=== PATIENT | female | born 1955 | race Caucasian/White ===

== ENCOUNTER 2017-07-03 03:47 | Inpatient (IN) | payer BC ==
[~2017-07-03] VITALS: Ht 167.6 cm; Wt 108.9 kg
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
[2017-07-03] MEDS ORDERED: ONDANSETRON HCL/PF 4 MG/2 ML VIAL ONE ×3 (03:53→05:10)
[2017-07-03] MEDS ORDERED: ONDANSETRON HCL/PF 4 MG/2 ML VIAL IVP ONE (04:00)
[2017-07-03] MEDS ORDERED: IV NS 0.9% 1,000 ML BAG IV ONE ×2 (04:00→06:00)
--- NOTE | 2017-07-03 04:00 | NUR ---
18G IV TO RAC USING ASEPTIC TECH, BLOOD SAMPLE HANDED OVER TO LAB AT BEDSIDE. IV FLUSHES EASILY WITH NS.
[2017-07-03 04:16] LABS: EOSINOPHILS # (AUTO) 0.1 /CMM (0.0-0.7); EOSINOPHILS % (AUTO) 0.3 % (0.0-6.0); HEMATOCRIT 49 % (33-45); HEMOGLOBIN 15.9 g/dL (11.5-14.8); LYMPHOCYTES # (AUTO) 1.4 /CMM (0.8-4.8); LYMPHOCYTES % (AUTO) 7.9 % (20.0-44.0); MEAN CORPUSCULAR HEMOGLOBIN 26 PG (26.0-33.0); MEAN CORPUSCULAR HGB CONC 32 g/dl (31.0-36.0); MEAN CORPUSCULAR VOLUME 81 fL (82-100); MONOCYTES # (AUTO) 1.8 /CMM (0.1-1.30); MONOCYTES % (AUTO) 9.7 % (2.0-12.0); NEUTROPHILS # (AUTO) 15.1 /CMM (1.8-8.9); NEUTROPHILS % (AUTO) 82.1 % (43.0-81.0); PLATELET COUNT (AUTO) 279 /CMM (150-450); RDW COEFFICIENT OF VARIATION 15.9 (11.5-15.0); RED BLOOD CELL COUNT(AUTO) 6.08 MIL/uL (4.0-5.2); WHITE BLOOD COUNT (AUTO) 18.4 K/uL (4.3-11.0)
[2017-07-03 04:27] LABS: INR 0.96 (0.87-1.13)
[2017-07-03 04:30] LABS: ALBUMIN 3.8 g/dL (3.4-5.0); BILIRUBIN,DIRECT 0.1 mg/dL (0.0-0.2); BILIRUBIN,TOTAL 0.5 mg/dL (0.2-1.0); CALCIUM, SERUM 9.2 mg/dL (8.5-10.1); TOTAL PROTEIN, SERUM 8.3 g/dL (6.4-8.2)
[2017-07-03 04:35] LABS: POTASSIUM 2.6 mmol/L (3.5-5.1)
--- NOTE | 2017-07-03 04:36 | NUR ---
DR. SHEIKH AT BEDSIDE SPEAKING TO PT REGARDING LAB RESULTS
[2017-07-03 04:37] LABS: BAND % (MANUAL) 11 % (0.0-5.0); MONOCYTES % (MANUAL) 4 % (0-11.0); NEUTROPHILS % (MANUAL) 85 (42-76)
[2017-07-03] MEDS ORDERED: ONDANSETRON HCL/PF 4 MG/2 ML VIAL IV ONE ×2 (05:00→05:30)
[2017-07-03] MEDS ORDERED: Magnesium 1 GM/2 ML VIAL IV ONE (05:00)
[2017-07-03] MEDS ORDERED: POTASSIUM CHLORIDE 20 MEQ TAB.PRT.SR PO ONE ×2 (05:00)
[2017-07-03] MEDS ORDERED: LORAZEPAM INJ 2 MG/ML VIAL ONE (05:41)
--- NOTE | 2017-07-03 05:51 | NUR ---
PT TO CT VIA STRETCHER. VSS.
[2017-07-03] MEDS ORDERED: LORAZEPAM INJ 2 MG/ML VIAL IV ONE (06:00)
[2017-07-03] MEDS ORDERED: LEVOFLOXACIN 750 MG /D5W 150ML 150 ML IV ONE ×2 (06:00→06:06)
[2017-07-03] MEDS: POTASSIUM CL. PREMIX PERIPHER. 50 ML IV SCH ×3 (06:16→10:08)
--- NOTE | 2017-07-03 06:16 | NUR ---
PT BACK FROM CT. VSS.
--- NOTE | 2017-07-03 06:29 | NUR ---
URINE SPECIMEN OBTAINED AND SENT TO LAB.
[2017-07-03 06:53] LABS: TROPONIN I < 0.017 ng/mL (0.00-0.056)
[2017-07-03 06:54] LABS: APPEARANCE,URINE SL CLOUDY (CLEAR); BILIRUBIN,URINE NEGATIVE (NEGATIVE); BLOOD, URINE TRACE Ery/uL (NEGATIVE); COLOR,URINE YELLOW (YELLOW); KETONES,URINE 1+ (NEGATIVE); LEUKOCYTE ESTERASE ,URINE 1+ (NEGATIVE); NITRITE, URINE NEGATIVE (NEGATIVE); PROTEIN,URINE NEGATIVE (NEGATIVE); UGLUCOSE NEGATIVE (NEGATIVE); UROBILINOGEN,URINE 0.2 EU/dL (0.2)
[2017-07-03] MEDS ORDERED: CALC0.253 PO (06:54)
[2017-07-03] MEDS ORDERED: CALC-838 PO (06:54)
[2017-07-03 06:58] LABS: BACTERIA,URINE 2+ /HPF (None Seen); MUCUS,URINE Few /LPF (None Seen); URINE AMORPHOUS URATE Moderate /HPF (None Seen)
[2017-07-03] MEDS ORDERED: CHOL100044 GT (06:58)
[2017-07-03] MEDS ORDERED: LEVO300T2 PO (06:58)
[2017-07-03] MEDS ORDERED: FURO80TA3 PO (07:46)
[2017-07-03] MEDS ORDERED: METO2.5T2 PO (07:46)
[2017-07-03] MEDS ORDERED: LEVO200T8 PO (07:46)
[2017-07-03] MEDS ORDERED: POTA20TA83 PO (07:46)
[2017-07-03] MEDS ORDERED: MELO-264 PO (07:46)
[2017-07-03] MEDS ORDERED: CALC0.5C2 PO (07:46)
--- NOTE | 2017-07-03 08:04 | NUR ---
CALLED [facility] FOR ADMISSION, DR. ALONSO DESAI IS [employer] OPERATOR.
--- NOTE | 2017-07-03 08:13 | NUR ---
PT IS GOING TO 309-2
--- NOTE | 2017-07-03 08:16 | NUR ---
REPORT GIVEN TO SARAH DELAROSA FOR TENA
--- NOTE | 2017-07-03 09:14 | NUR ---
patient transporte to [facility]
[2017-07-03 09:20] VITALS: BP 97/45
--- NOTE | 2017-07-03 09:20 | NUR ---
MS RN RECEIVING NOTE PATIENT IS ADMITTED TO THE UNIT. DR. GUPTA IS AT THE BEDSIDE. PATIENT IS A/O X3, AWAKE AND COOPERATIVE. PATIENT IS AMBULATORY WITH STEADY GAIT. RAC 18 GAUGE IV CATHETER IS PATENT. PATIENT IS IN BED. BED IS LOCKED, IN LOWEST POSITION, SIDE RAILS UP X2, HOB ELEVATED, PATIENT IN HIGH BAUM'S POSITION. DENIES PAIN/DISCOMFORT AT THIS TIME. PATIENT IS STABLE. SPO2 96% ON ROOM AIR. AFEBRILE. PRESENTS WITH DECREASED BP OF 97/47 MMHG. MD IS NOTIFIED. FLUID ORDER IS OBTAINED. PATIENT EDUCATED TO CALL FOR ASSISTANCE USING THE CALL LIGHT. PATIENT VERBALIZED FULL UNDERSTANDING OF THE TEACHINGS. WILL CONTINUE TO ASSESS/MONITOR THROUGHOUT THE SHIFT.
[2017-07-03 09:25] VITALS: BP 97/47
[2017-07-03] MEDS ORDERED: MAGNESIUM HYDROXIDE 30 ML UDC PO PRN (09:30)
[2017-07-03] MEDS ORDERED: ACETAMINOPHEN 325 MG TABLET PO PRN (09:30)
[2017-07-03] MEDS ORDERED: HYDROCODONE/APAP 5/325MG 1 EACH TABLET PO PRN (09:30)
[2017-07-03] MEDS ORDERED: MAG HYDROX/AL HYDROX/SIMETH 30 ML UDC PO PRN (09:30)
[2017-07-03] MEDS ORDERED: ZOLPIDEM TARTRATE 5 MG TABLET PO PRN (09:30)
[2017-07-03] MEDS ORDERED: Z GUARD REMEDY 2 OZ OINT TP PRN (09:30)
[2017-07-03] MEDS: IV NS 0.9% 1,000 ML IV PRN (10:02)
--- NOTE | 2017-07-03 10:55 | NUR ---
MS RN NOTE CALLED THE PHARMACY TO NOTIFY THAT ROCEPHIN DUE AT 10 AM IS NOT ON THE FLOOR. PHARMACIST STATED THE MEDICATION WILL BE DELIVERED TO THE FLOOR SOON. WILL ADMINISTER ONCE RECEIVED.
[2017-07-03] MEDS: CEFTRIAXONE 1 G in IV D5W 50 ML IV SCH (11:49)
--- NOTE | 2017-07-03 11:50 | NUR ---
MS RN NOTE ADMINISTERING ROCEPHIN ONCE DELIVERED BY THE PHARMACY.
[2017-07-03] MEDS: METRONIDAZOLE 500MG/ NS 100ML 500 MG in PREMIX 1 EA IV SCH ×3 (12:45→23:19)
[2017-07-03 16:00] VITALS: BP_SYST 97; BP_SYST 98; BP_DIAS 50; BP_DIAS 55
[2017-07-03] MEDS: ONDANSETRON HCL/PF 4 MG/2 ML VIAL IVP PRN ×2 (16:02→21:54)
--- NOTE | 2017-07-03 16:08 | NUR ---
MS RN NOTE PATIENT HAD AN EPISODE OF DIARRHEA.
--- NOTE | 2017-07-03 16:09 | NUR ---
MS RN NOTE PATIENT COMPLAINING OF NAUSEA. ZOFRAN ADMINISTERED ORDERED. NO EPISODE OF EMESIS AT THIS TIME. WILL CONTINUE TO MONITOR.
--- NOTE | 2017-07-03 18:55 | NUR ---
MS RN CLOSING KIDNEY/BLADDER ULTRASOUND AT THE BEDSIDE. PATIENT IS A/O X3, AWAKE AND COOPERATIVE. PATIENT IS AMBULATORY WITH STEADY GAIT. RAC 18 GAUGE IV CATHETER IS PATENT. IV NS AT 100ML IS INFUSING PRESCRIBED. ANTIBIOTICS/MEDICATIONS ADMINISTERED PRESCRIBED. PATIENT IS IN BED. BED IS LOCKED, IN LOWEST POSITION, SIDE RAILS UP X2, HOB ELEVATED, PATIENT IN HIGH BAUM'S POSITION. DENIES PAIN/DISCOMFORT AT THIS TIME. PATIENT IS STABLE. SPO2 95% ON ROOM AIR. AFEBRILE. BP 99/62. PATIENT EDUCATED TO CALL FOR ASSISTANCE USING THE CALL LIGHT. PATIENT VERBALIZED FULL UNDERSTANDING OF THE TEACHINGS. WILL ENDORSE TO THE PROFESSOR OF LITERATURE FOR TENA.
--- NOTE | 2017-07-03 19:30 | NUR ---
RN OPENING NOTES PATIENT IS IN BED, A/O X3. SON PRESENT AT BEDSIDE. VS STABLE. NO SOB NOTED. NO C/O PAIN AT THIS TIME. RESPIRATIONS EVEN AND UNLABORED. IV ACCESS ON RAC 18 GAUGE PATENT AND INTACT. INFUSING NS AT 100 ML/HR. NO SIGNS OF REDNESS OR INFILTRATION NOTED. BED IS IN LOCKED AND LOWEST POSITION. SIDE RAILS UP X2. CALL LIGHT WITHIN EASY REACH. WILL CONTINUE TO MONITOR AND ASSESS DURING THE SHIFT.
[2017-07-03 20:00] VITALS: BP 96/62
[2017-07-03 20:05] VITALS: BP 96/62
--- NOTE | 2017-07-03 21:56 | NUR ---
RN NOTES PATIENT C/O NAUSEA. ZOFRAN 4MG/2ML ADMINISTERED PRN. CONTINUE TO MONITOR.
[2017-07-04] MEDS: IV NS 0.9% 1,000 ML IV PRN ×2 (05:07→18:45)
[2017-07-04] MEDS: METRONIDAZOLE 500MG/ NS 100ML 500 MG in PREMIX 1 EA IV SCH ×4 (05:26→23:48)
[2017-07-04 06:42] LABS: ALBUMIN 2.7 g/dL (3.4-5.0); BILIRUBIN,TOTAL 0.3 mg/dL (0.2-1.0); CALCIUM, SERUM 7.3 mg/dL (8.5-10.1); MAGNESIUM 1.7 mg/dL (1.8-2.4); TOTAL PROTEIN, SERUM 6.2 g/dL (6.4-8.2)
[2017-07-04 06:48] LABS: THYROID STIMULATING HORMONE 0.156 uIU/mL (0.358-3.74)
[2017-07-04 06:51] LABS: EOSINOPHILS # (AUTO) 0.1 /CMM (0.0-0.7); EOSINOPHILS % (AUTO) 0.7 % (0.0-6.0); HEMATOCRIT 38 % (33-45); HEMOGLOBIN 12.6 g/dL (11.5-14.8); LYMPHOCYTES # (AUTO) 1.6 /CMM (0.8-4.8); LYMPHOCYTES % (AUTO) 20.1 % (20.0-44.0); MEAN CORPUSCULAR HEMOGLOBIN 27 PG (26.0-33.0); MEAN CORPUSCULAR HGB CONC 33 g/dl (31.0-36.0); MEAN CORPUSCULAR VOLUME 81 fL (82-100); MONOCYTES # (AUTO) 0.6 /CMM (0.1-1.30); MONOCYTES % (AUTO) 7.3 % (2.0-12.0); NEUTROPHILS # (AUTO) 5.6 /CMM (1.8-8.9); NEUTROPHILS % (AUTO) 71.9 % (43.0-81.0); PLATELET COUNT (AUTO) 242 /CMM (150-450); RDW COEFFICIENT OF VARIATION 16.2 (11.5-15.0); RED BLOOD CELL COUNT(AUTO) 4.65 MIL/uL (4.0-5.2); WHITE BLOOD COUNT (AUTO) 7.7 K/uL (4.3-11.0)
--- NOTE | 2017-07-04 06:58 | NUR ---
RN CLOSING NOTES PATIENT IS SLEEPING IN BED, EASILY AROUSABLE. VS STABLE. NO SOB NOTED. RESPIRATIONS EVEN AND UNLABORED. IV ACCESS ON RAC 18 GAUGE PATENT AND INTACT. INFUSING NS AT 100 ML/HR. NO SIGNS OF REDNESS OR INFILTRATION NOTED. ALL MEDICATIONS GIVEN PER MD ORDER. BED IS IN LOCKED AND LOWEST POSITION. SIDE RAILS UP X2. CALL LIGHT WITHIN EASY REACH. WILL ENDORSE TO RN DAY SHIFT FOR CONTINUITY OF CARE.
--- NOTE | 2017-07-04 07:30 | NUR ---
MS RN Initial notes Received pt in bed, alert, awake, verbally responsive.On room air, no SOB, no apparent distress noted. IV site RT AC intact, patent,no s/sx of infiltration noted On IV NS at 100ml /hr. Denies any pain or discomfort at this time. Kept clean and comfortable. call light within reach. Will continue to monitor accordingly
[2017-07-04 07:42] LABS: POTASSIUM 2.3 mmol/L (3.5-5.1)
[2017-07-04 08:00] VITALS: BP 98/60
--- NOTE | 2017-07-04 08:59 | NUR ---
MS Notes Dr Banegas on side and informed about potassium 2.3 and ordered potassium Po 80 Meqx1 Potassium bolus x 4 bags. All orders noted and carried out.
[2017-07-04 09:00] VITALS: BP 98/60
[2017-07-04] MEDS: POTASSIUM CHLORIDE 20 MEQ TAB.PRT.SR PO SCH ×2 (09:10→10:13)
[2017-07-04] MEDS: CEFTRIAXONE 1 G in IV D5W 50 ML IV SCH (09:11)
[2017-07-04] MEDS: Magnesium 1GM/D5W 100ML PREMIX 100 ML IV SCH ×2 (10:15→11:27)
[2017-07-04] MEDS: POTASSIUM CL. PREMIX PERIPHER. 50 ML IV SCH ×4 (13:15→16:19)
[2017-07-04] MEDS: ONDANSETRON HCL/PF 4 MG/2 ML VIAL IVP PRN ×2 (13:15→19:50)
[2017-07-04 16:00] VITALS: BP 121/74
--- NOTE | 2017-07-04 19:19 | NUR ---
MS RN closing notes All needs provided, attended, and anticipated. kept patient clean and comfortable in bed, call light with in patient reach, Endorsed to next shift RN to continue care.
--- NOTE | 2017-07-04 19:20 | NUR ---
RN OPEN NOTES RECEIVED PATIENT AWAKE SITTING IN CHAIR. A/O X4. NO SIGNS OF DISTRESS OR DISCOMFORT. BREATHING EVEN AND UNLABORED. IV ACCESS IN L HAND WITH NS INFUSING, PATENT AND INTACT, NO SIGNS OF REDNESS OR INFILTRATION. BED IN LOW LOCKED POSITION WITH SIDE RAILS X2. CALL LIGHT WITHIN REACH. WILL CONTINUE TO MONITOR.
--- NOTE | 2017-07-04 19:50 | NUR ---
RN NOTES ADMINISTERED ZOFRAN 4MG ORDERED FOR NAUSEA. WILL CONTINUE TO MONITOR.
[2017-07-04 20:00] VITALS: BP 123/76
[2017-07-04 21:16] VITALS: BP 103/76
[2017-07-04] MEDS ORDERED: CALCITRIOL 0.25 MCG CAPSULE ONE (23:40)
[2017-07-04] MEDS: CALCITRIOL 0.25 MCG CAPSULE PO SCH (23:48)
[2017-07-05] MEDS: METRONIDAZOLE 500MG/ NS 100ML 500 MG in PREMIX 1 EA IV SCH ×3 (05:38→18:56)
[2017-07-05] MEDS: IV NS 0.9% 1,000 ML IV PRN (05:38)
[2017-07-05 07:01] LABS: CREATININE 0.9 mg/dL (0.6-1.3); MAGNESIUM 1.8 mg/dL (1.8-2.4)
--- NOTE | 2017-07-05 07:15 | NUR ---
MS RN Initial notes Received pt in bed awake, alert, verbally responsive, denies ani pain or discomfort at this time. On room air, no sob, no apparent distress noted. IV site Lt hand intact, patent no s/sx of infiltration noted. On NS at 100 ml/hr. Kept clean and comfortable, call light within reach. Will continue to monitor accordingly
--- NOTE | 2017-07-05 07:33 | NUR ---
RN CLOSING NOTES PATIENT AWAKE SITTING IN BED. A/O X4. NO SIGNS OF DISTRESS OR DISCOMFORT. BREATHING EVEN AND UNLABORED. IV ACCESS IN L HAND WITH NS INFUSING, PATENT AND INTACT, NO SIGNS OF REDNESS OR INFILTRATION. ALL NEEDS MET. NO SIGNIFICANT CHANGES THROUGH THE NIGHT. BED IN LOW LOCKED POSITION WITH SIDE RAILS X2. CALL LIGHT WITHIN REACH. ENDORSED TO AM SHIFT FOR TENA.
[2017-07-05 08:00] VITALS: BP 109/67
[2017-07-05 08:02] LABS: ALBUMIN 3.1 g/dL (3.4-5.0); BILIRUBIN,DIRECT 0.1 mg/dL (0.0-0.2); BILIRUBIN,TOTAL 0.3 mg/dL (0.2-1.0)
[2017-07-05] MEDS: CALCITRIOL 0.25 MCG CAPSULE PO SCH (09:38)
[2017-07-05] MEDS: CEFTRIAXONE 1 G in IV D5W 50 ML IV SCH (09:38)
[2017-07-05 10:00] VITALS: BP 109/67
[2017-07-05] MEDS ORDERED: POTASSIUM CHLORIDE 20 MEQ TAB.PRT.SR PO ONE (10:00)
[2017-07-05] MEDS ORDERED: POTASSIUM CL. PREMIX PERIPHER. 50 ML IV ONE (10:00)
[2017-07-05] MEDS ORDERED: CALCIUM CARBONATE 500 MG TAB.CHEW PO SCH (10:00)
[2017-07-05] MEDS ORDERED: LEVOFLOXACIN 500 MG /D5W 100ML 500 MG in PREMIX 1 EA IV SCH (15:30)
[2017-07-05 16:00] VITALS: BP 122/69
[2017-07-05] MEDS ORDERED: METOLAZONE 2.5 MG TABLET PO SCH (17:00)
[2017-07-05] MEDS ORDERED: POTASSIUM CHLORIDE 20 MEQ TAB.PRT.SR PO SCH (17:00)
--- NOTE | 2017-07-05 17:32 | NUR ---
ms rn notes Panch[employer] PATROL MOTHER on site and informed regarding patient concern about her calcium of 7.0 and [employer] MOTHER order calcium gluconate 1G IV x 1 only. All orders carried out and noted and informed patient, will continue to monitor accordingly.
[2017-07-05] MEDS ORDERED: Calcium Gluconate 1GM/10ML 4.65 MEQ in IV D5W 50 ML IV ONE (18:00)
--- NOTE | 2017-07-05 19:19 | NUR ---
ms rn closing notes All needs provided, attended,and anticipated. Kept patient clean and comfortable in bed, call light with in patient reach, endorsed to next shift RN to continue care.
--- NOTE | 2017-07-05 19:35 | NUR ---
RN NOTES: CALLED DR BLAKELY TO ASK FOR ORDER FOR REPEAT CALCIUM LEVEL PER PT REQUEST. PATIENT HAS BEEN HAVING TREMORS , AND SHE STATED THAT SHE DID NOT GET THE CALCIUM EARLIER BECAUSE HER IV IS NOT WORKING. IV APPEARS REDDENED, TENDER, D'QUINTIN IV WHICH IS NOW INFUSING WITH FLAGYL IV AND EXPLAINED THAT CA GLUC WAS DONE AND FINISHED EARLIER. PER DR BLAKELY, CA WILL BE DRAWN IN THE AM, NO NEED FOR IT TO BE DONE NOW.
--- NOTE | 2017-07-05 19:40 | NUR ---
RN NOTES: PAGED DR NAPIER TO INFORM HER ABOUT PATIENT'S DESIRE TO LEAVE AMA.
--- NOTE | 2017-07-05 20:28 | NUR ---
RN NOTES: BELONGINGS CHECKED WITH PATIENT, PATIENT SIGNED LIST.
[2017-07-05 20:30] VITALS: BP 114/67
--- NOTE | 2017-07-05 20:30 | NUR ---
RN NOTES (AMA): GAVE PATIENT EDUCATION RE NEED FOR MORE LABS IN THE AM AND THE NEED TO CONTINUE TREATMENT HERE AT [facility]. EXPLAINED TO HER THAT CA LEVEL WILL BE DRAWN IN THE AM, AND THAT SHE IS GETTING THE REPLACEMENTS PER NEED, WITH MD ORDERS. HOWEVER, PATIENT STILL REFUSING TO STAY, SAYING THAT SHE WILL GO TO HER USUAL HOSPITAL, WHICH IS [facility]. PATIENT'S SON NOW AT BEDSIDE TO PICK HER UP. AMA DOCUMENT SIGNED, DISCHARGE CARE DONE, PIV D'QUINTIN. VS CHECKED, WNL. PATIENT WAS ASSISTED VIA WHEELCHAIR BY NURSING RESIDENT OUT OF MS FLOOR IN STABLE CONDITION. CALLED DR BLAKELY TO INFORM HER.
[2017-07-06] MEDS ORDERED: LEVOTHYROXINE SODIUM 175 MCG TABLET PO SCH (07:30)
[2017-07-06] MEDS ORDERED: MELOXICAM 7.5 MG TABLET PO SCH (09:00)
[2017-07-06] MEDS ORDERED: FUROSEMIDE 80 MG TABLET PO SCH (09:00)
== END 2017-07-05 20:30 | disposition left against medical advice (07) | DRG 372 ==
LOC: ER 03:55 → MED 08:39
DX: A04.9 Bacterial intestinal infection, unspecified (principal); J98.11 Atelectasis; I95.9 Hypotension, unspecified; E66.01 Morbid (severe) obesity due to excess calories; N28.1 Cyst of kidney, acquired; E83.51 Hypocalcemia; N39.0 Urinary tract infection, site not specified; E86.0 Dehydration; D72.825 Bandemia; E03.9 Hypothyroidism, unspecified; I10 Essential (primary) hypertension; I73.9 Peripheral vascular disease, unspecified; Z68.38 Body mass index [BMI] 38.0-38.9, adult; B96.1 Klebsiella pneumoniae [K. pneumoniae] as the cause of diseases classified elsewhere; B96.89 Other specified bacterial agents as the cause of diseases classified elsewhere
CPT/HCPCS: 36415; 71010-TC; 76770-TC; 80048-TC; 80053-TC; 80061-TC; 80076-TC; 81000-TC; 83605-TC; 83690-TC; 83735-TC; 84100-TC; 84443-TC; 84484-TC; 85025-TC; 85730-TC; 87040-TC; 87081-TC; 87086-TC; 87186-TC; A4216; J0610; J0696; J1956; J2060; J2405; J3475; J3480; J3490; J7030; J7060; Z7610

== ENCOUNTER 2025-01-31 07:51 | Inpatient (IN) | payer BC ==
[~2025-01-31] VITALS: Ht 160 cm; Wt 163.9 kg
[~2025-01-31 07:51] MED LIST: CALC0.5C11 PO; CHOL100044 PO; FURO80TA3 PO; LEVO200T8 PO; MELO-107 PO; METO2.5T2 PO; POTA20TA83 PO
[2025-01-31] MEDS: IV NS 0.9% 1,000 ML BAG IV ONE (08:30)
[2025-01-31] MEDS: VANCOMYCIN 1 GM in IV D5W 250 ML IV ONE (08:30)
[2025-01-31] MEDS: CEFEPIME 1 GM in IV D5W 50 ML IV ONE (08:30)
[2025-01-31 08:54] LABS: BASOPHILS # (AUTO) 0.1 K/uL (0.0-0.2); BASOPHILS % (AUTO) 0.5 % (0.0-2.0); HEMATOCRIT 41 % (33-45); HEMOGLOBIN 13.2 g/dL (11.5-14.8); LYMPHOCYTES # (AUTO) 0.9 K/uL (0.8-4.8); LYMPHOCYTES % (AUTO) 5.1 % (20.0-44.0); MEAN CORPUSCULAR HEMOGLOBIN 26 PG (26.0-33.0); MEAN CORPUSCULAR HGB CONC 32 g/dl (31.0-36.0); MEAN CORPUSCULAR VOLUME 80 fL (82-100); MONOCYTES # (AUTO) 0.9 K/uL (0.1-1.30); MONOCYTES % (AUTO) 5.4 % (2.0-12.0); NEUTROPHILS # (AUTO) 15.6 K/uL (1.8-8.9); PLATELET COUNT (AUTO) 231 K/uL (150-450); RED BLOOD CELL COUNT(AUTO) 5.07 MIL/uL (4.0-5.2); WHITE BLOOD COUNT (AUTO) 17.6 K/uL (4.3-11.0)
[2025-01-31 09:02] LABS: CALCIUM, SERUM 7.9 mg/dL (8.5-10.1); POTASSIUM 3.6 mmol/L (3.5-5.1)
[2025-01-31 09:07] LABS: INR 1.09 (0.91-1.10); PARTIAL THROMBOPLASTIN TIME 30.1 SEC (24.3-34.3); PROTHROMBIN TIME 11.5 SECS (9.2-11.1)
[2025-01-31 09:08] LABS: BILIRUBIN,DIRECT 0.3 mg/dL (0.0-0.2); BILIRUBIN,TOTAL 0.8 mg/dL (0.2-1.0); TOTAL PROTEIN, SERUM 7.6 g/dL (6.4-8.2)
[2025-01-31 09:12] LABS: LACTIC ACID 1.4 mmol/L (0.4-2.0)
[2025-01-31] MEDS ORDERED: CALC-494 PO (09:12)
[2025-01-31] MEDS ORDERED: VITA1TAB56 PO (09:12)
[2025-01-31] MEDS ORDERED: OXYB15TA19 PO (09:12)
[2025-01-31] MEDS ORDERED: TRAM50TA2 PO (09:12)
[2025-01-31] MEDS ORDERED: ASCO100058 PO (09:12)
[2025-01-31] MEDS ORDERED: PREG-57 PO (09:12)
[2025-01-31] MEDS ORDERED: MULT-594 PO (09:12)
[2025-01-31] MEDS ORDERED: PREG25CA51 PO (09:12)
[2025-01-31] MEDS ORDERED: Z GUARD REMEDY 4 OZ OINT TP PRN (11:00)
[2025-01-31] MEDS ORDERED: MAG HYDROX/AL HYDROX/SIMETH 30 ML UDC PO PRN (11:00)
[2025-01-31] MEDS ORDERED: MAGNESIUM HYDROXIDE 30 ML UDC PO PRN (11:00)
[2025-01-31] MEDS ORDERED: CEFEPIME 1 GM in IV D5W 50 ML IV SCH (11:00)
[2025-01-31] MEDS ORDERED: IV NS 0.9% 1,000 ML IV PRN (11:00)
[2025-01-31] MEDS: ENOXAPARIN SODIUM 40 MG/0.4 ML DISP.SYRIN SQ SCH (11:00)
[2025-01-31] MEDS ORDERED: ONDANSETRON HCL/PF 4 MG/2 ML VIAL IVP PRN (11:00)
[2025-01-31] MEDS ORDERED: ACETAMINOPHEN 325 MG TABLET PO PRN (11:00)
[2025-01-31] MEDS ORDERED: MORPHINE SULFATE INJ 2 MG/ML DISP.SYRIN IV PRN (12:30)
[2025-01-31] MEDS: VANCOMYCIN 1 GM in IV D5W 250ml IV ONE (13:37)
[2025-01-31] MEDS: PREGABALIN 25 MG CAPSULE PO SCH ×2 (13:37→17:11)
[2025-01-31] MEDS: PHENYLEPHRINE/SHK LV/MO/PET,WH 30 GM TUBE RC SCH (13:41)
[2025-01-31 16:00] VITALS: BP 127/59; TEMP 97.6; O2SAT 97
[2025-01-31] MEDS: ASCORBIC ACID 500 MG TABLET PO SCH (17:11)
[2025-01-31 17:30] VITALS: BP 124/74; TEMP 98.1; O2SAT 97
[2025-01-31] MEDS: CEFEPIME 2 GM in IV D5W 100 ML IV SCH (19:54)
[2025-01-31 20:00] VITALS: BP 133/63; TEMP 100.2; O2SAT 96
[2025-01-31] MEDS: TRAMADOL HCL 50 MG TABLET PO PRN (21:22)
[2025-02-01] MEDS: VANCOMYCIN HCL 1.25 GM in IV D5W 250 ML IV SCH (00:05)
[2025-02-01 06:57] LABS: BASOPHILS % (AUTO) 0.1 % (0.0-2.0); EOSINOPHILS # (AUTO) 0.1 K/uL (0.0-0.7); EOSINOPHILS % (AUTO) 0.3 % (0.0-6.0); HEMATOCRIT 37 % (33-45); HEMOGLOBIN 11.9 g/dL (11.5-14.8); LYMPHOCYTES # (AUTO) 0.5 K/uL (0.8-4.8); LYMPHOCYTES % (AUTO) 2.5 % (20.0-44.0); MEAN CORPUSCULAR HEMOGLOBIN 26 PG (26.0-33.0); MEAN CORPUSCULAR HGB CONC 32 g/dl (31.0-36.0); MEAN CORPUSCULAR VOLUME 81 fL (82-100); MONOCYTES # (AUTO) 1.1 K/uL (0.1-1.30); MONOCYTES % (AUTO) 5.2 % (2.0-12.0); NEUTROPHILS # (AUTO) 18.8 K/uL (1.8-8.9); NEUTROPHILS % (AUTO) 91.9 % (43.0-81.0); PLATELET COUNT (AUTO) 215 K/uL (150-450); RED BLOOD CELL COUNT(AUTO) 4.57 MIL/uL (4.0-5.2); RED CELL DISTRIBUTION WIDTH 16.9 % (11.5-15.0); WHITE BLOOD COUNT (AUTO) 20.5 K/uL (4.3-11.0)
[2025-02-01 07:29] LABS: CALCIUM, SERUM 7.8 mg/dL (8.5-10.1); CREATININE 0.8 mg/dL (0.6-1.3); POTASSIUM 3.7 mmol/L (3.5-5.1)
[2025-02-01 07:30] VITALS: BP 132/63; TEMP 99.7; O2SAT 90
[2025-02-01] MEDS: LEVOTHYROXINE SODIUM 125 MCG TABLET PO SCH (08:13)
[2025-02-01] MEDS: MULTIVITAMINS,THERAGRAN 1 UDTAB TABLET PO SCH (09:49)
[2025-02-01] MEDS: VITAMIN B COMP W-C 1 TAB TABLET PO SCH (09:49)
[2025-02-01] MEDS: CHOLECALCIFEROL 1,000 UNIT TABLET (VIT D3) PO SCH (09:50)
[2025-02-01] MEDS: CALCIUM CARBONATE 500 MG TAB.CHEW PO SCH (09:50)
[2025-02-01 16:00] VITALS: BP_SYST 123; BP_SYST 135; BP_DIAS 61; BP_DIAS 80; TEMP 97.9; TEMP 99.3; O2SAT 96; O2SAT 97
[2025-02-01] MEDS: HYDROCODONE/APAP 10/325MG TABLET PO PRN (17:54)
[2025-02-01 20:00] VITALS: BP 102/54; TEMP 98.6; O2SAT 96
[2025-02-01 20:06] VITALS: O2SAT 96
[2025-02-01] MEDS: ALBUTEROL FS 2.5 MG/3 ML VIAL.NEB NEB SCH (20:06)
[2025-02-01] MEDS: IPRATROPIUM NEB FS 0.5 MG/2.5 ML AMPUL.NEB NEB SCH (20:06)
[2025-02-01 20:18] VITALS: O2SAT 99
[2025-02-02] VITALS (8 sets, daily range): BP systolic 92–120; BP diastolic 54–58; TEMP 97.9–99.5; O2SAT 94–99
[2025-02-02 07:25] LABS: BASOPHILS # (AUTO) 0.1 K/uL (0.0-0.2); BASOPHILS % (AUTO) 0.3 % (0.0-2.0); EOSINOPHILS # (AUTO) 0.1 K/uL (0.0-0.7); EOSINOPHILS % (AUTO) 0.6 % (0.0-6.0); HEMATOCRIT 38 % (33-45); HEMOGLOBIN 11.6 g/dL (11.5-14.8); LYMPHOCYTES # (AUTO) 0.9 K/uL (0.8-4.8); LYMPHOCYTES % (AUTO) 4.7 % (20.0-44.0); MEAN CORPUSCULAR HEMOGLOBIN 26 PG (26.0-33.0); MEAN CORPUSCULAR HGB CONC 31 g/dl (31.0-36.0); MEAN CORPUSCULAR VOLUME 82 fL (82-100); MONOCYTES # (AUTO) 1.2 K/uL (0.1-1.30); MONOCYTES % (AUTO) 6.2 % (2.0-12.0); NEUTROPHILS # (AUTO) 17.3 K/uL (1.8-8.9); NEUTROPHILS % (AUTO) 88.2 % (43.0-81.0); PLATELET COUNT (AUTO) 214 K/uL (150-450); RED BLOOD CELL COUNT(AUTO) 4.56 MIL/uL (4.0-5.2); RED CELL DISTRIBUTION WIDTH 16.7 % (11.5-15.0); WHITE BLOOD COUNT (AUTO) 19.7 K/uL (4.3-11.0)
[2025-02-02 08:11] LABS: CALCIUM, SERUM 7.9 mg/dL (8.5-10.1); CREATININE 0.8 mg/dL (0.6-1.3); POTASSIUM 3.7 mmol/L (3.5-5.1)
[2025-02-02] MEDS: ALBUTEROL FS 2.5 MG/3 ML VIAL.NEB NEB SCH (20:06)
[2025-02-02] MEDS: IPRATROPIUM NEB FS 0.5 MG/2.5 ML AMPUL.NEB NEB SCH (20:07)
[2025-02-03] VITALS (9 sets, daily range): BP systolic 114–147; BP diastolic 55–83; TEMP 97.6–98.1; O2SAT 92–99
[2025-02-03 06:37] LABS: BASOPHILS # (AUTO) 0.1 K/uL (0.0-0.2); BASOPHILS % (AUTO) 0.3 % (0.0-2.0); EOSINOPHILS # (AUTO) 0.2 K/uL (0.0-0.7); EOSINOPHILS % (AUTO) 1.1 % (0.0-6.0); HEMATOCRIT 38 % (33-45); HEMOGLOBIN 11.9 g/dL (11.5-14.8); LYMPHOCYTES # (AUTO) 1.1 K/uL (0.8-4.8); LYMPHOCYTES % (AUTO) 6.1 % (20.0-44.0); MEAN CORPUSCULAR HEMOGLOBIN 26 PG (26.0-33.0); MEAN CORPUSCULAR HGB CONC 31 g/dl (31.0-36.0); MEAN CORPUSCULAR VOLUME 83 fL (82-100); MONOCYTES # (AUTO) 1.4 K/uL (0.1-1.30); MONOCYTES % (AUTO) 7.8 % (2.0-12.0); NEUTROPHILS # (AUTO) 15.1 K/uL (1.8-8.9); NEUTROPHILS % (AUTO) 84.7 % (43.0-81.0); PLATELET COUNT (AUTO) 210 K/uL (150-450); RED BLOOD CELL COUNT(AUTO) 4.61 MIL/uL (4.0-5.2); RED CELL DISTRIBUTION WIDTH 17.2 % (11.5-15.0); WHITE BLOOD COUNT (AUTO) 17.9 K/uL (4.3-11.0)
[2025-02-03 07:04] LABS: CALCIUM, SERUM 7.7 mg/dL (8.5-10.1); CREATININE 0.7 mg/dL (0.6-1.3); POTASSIUM 4.3 mmol/L (3.5-5.1)
[2025-02-04] VITALS (9 sets, daily range): BP systolic 128–148; BP diastolic 68–69; TEMP 98.1–98.4; O2SAT 94–99
[2025-02-04 07:15] LABS: BASOPHILS % (AUTO) 0.3 % (0.0-2.0); EOSINOPHILS # (AUTO) 0.2 K/uL (0.0-0.7); EOSINOPHILS % (AUTO) 1.4 % (0.0-6.0); HEMATOCRIT 34 % (33-45); HEMOGLOBIN 10.7 g/dL (11.5-14.8); LYMPHOCYTES # (AUTO) 0.8 K/uL (0.8-4.8); LYMPHOCYTES % (AUTO) 5.7 % (20.0-44.0); MEAN CORPUSCULAR HEMOGLOBIN 26 PG (26.0-33.0); MEAN CORPUSCULAR HGB CONC 31 g/dl (31.0-36.0); MEAN CORPUSCULAR VOLUME 82 fL (82-100); MONOCYTES % (AUTO) 6.8 % (2.0-12.0); NEUTROPHILS # (AUTO) 12.2 K/uL (1.8-8.9); NEUTROPHILS % (AUTO) 85.8 % (43.0-81.0); PLATELET COUNT (AUTO) 271 K/uL (150-450); RED CELL DISTRIBUTION WIDTH 16.7 % (11.5-15.0); WHITE BLOOD COUNT (AUTO) 14.2 K/uL (4.3-11.0)
[2025-02-04 07:19] LABS: CALCIUM, SERUM 7.6 mg/dL (8.5-10.1); CREATININE 0.7 mg/dL (0.6-1.3); POTASSIUM 3.6 mmol/L (3.5-5.1)
[2025-02-04 15:22] LABS: NEUTROPHILS % (MANUAL) 82 (42-76)
[2025-02-04 15:23] LABS: LYMPHOCYTES % (MANUAL) 10 % (16-48); MONOCYTES % (MANUAL) 8 % (0-11.0); PLATELET ESTIMATE ADEQUATE
[2025-02-04] MEDS: PREGABALIN 25 MG CAPSULE PO SCH (20:23)
[2025-02-05] VITALS (9 sets, daily range): BP systolic 119–137; BP diastolic 55–70; TEMP 98.1–98.4; O2SAT 94–99
[2025-02-05 06:45] LABS: BASOPHILS % (AUTO) 0.4 % (0.0-2.0); EOSINOPHILS # (AUTO) 0.3 K/uL (0.0-0.7); EOSINOPHILS % (AUTO) 2.5 % (0.0-6.0); HEMATOCRIT 34 % (33-45); HEMOGLOBIN 10.9 g/dL (11.5-14.8); LYMPHOCYTES # (AUTO) 1.2 K/uL (0.8-4.8); LYMPHOCYTES % (AUTO) 12.2 % (20.0-44.0); MEAN CORPUSCULAR HEMOGLOBIN 26 PG (26.0-33.0); MEAN CORPUSCULAR HGB CONC 32 g/dl (31.0-36.0); MEAN CORPUSCULAR VOLUME 82 fL (82-100); MONOCYTES # (AUTO) 0.8 K/uL (0.1-1.30); MONOCYTES % (AUTO) 8.1 % (2.0-12.0); NEUTROPHILS # (AUTO) 7.8 K/uL (1.8-8.9); NEUTROPHILS % (AUTO) 76.8 % (43.0-81.0); PLATELET COUNT (AUTO) 281 K/uL (150-450); RED BLOOD CELL COUNT(AUTO) 4.21 MIL/uL (4.0-5.2); RED CELL DISTRIBUTION WIDTH 16.5 % (11.5-15.0); WHITE BLOOD COUNT (AUTO) 10.1 K/uL (4.3-11.0)
[2025-02-05 07:08] LABS: CALCIUM, SERUM 7.8 mg/dL (8.5-10.1); CREATININE 0.7 mg/dL (0.6-1.3); POTASSIUM 3.6 mmol/L (3.5-5.1)
[2025-02-05] MEDS ORDERED: CALCIUM CARBONATE 500 MG TAB.CHEW PO SCH (09:00)
[2025-02-05] MEDS: HYDROCODONE/APAP 5/325MG TABLET PO PRN (12:26)
[2025-02-06] VITALS (9 sets, daily range): BP systolic 146–150; BP diastolic 74–81; TEMP 98.1–98.4; O2SAT 94–99
[2025-02-06 06:52] LABS: BASOPHILS # (AUTO) 0.1 K/uL (0.0-0.2); BASOPHILS % (AUTO) 0.6 % (0.0-2.0); EOSINOPHILS # (AUTO) 0.2 K/uL (0.0-0.7); EOSINOPHILS % (AUTO) 2.6 % (0.0-6.0); HEMATOCRIT 37 % (33-45); HEMOGLOBIN 11.5 g/dL (11.5-14.8); LYMPHOCYTES % (AUTO) 10.9 % (20.0-44.0); MEAN CORPUSCULAR HEMOGLOBIN 26 PG (26.0-33.0); MEAN CORPUSCULAR HGB CONC 32 g/dl (31.0-36.0); MEAN CORPUSCULAR VOLUME 81 fL (82-100); MONOCYTES # (AUTO) 0.8 K/uL (0.1-1.30); MONOCYTES % (AUTO) 8.2 % (2.0-12.0); NEUTROPHILS # (AUTO) 7.2 K/uL (1.8-8.9); NEUTROPHILS % (AUTO) 77.7 % (43.0-81.0); PLATELET COUNT (AUTO) 291 K/uL (150-450); RED CELL DISTRIBUTION WIDTH 16.1 % (11.5-15.0); WHITE BLOOD COUNT (AUTO) 9.2 K/uL (4.3-11.0)
[2025-02-06 06:58] LABS: CALCIUM, SERUM 7.7 mg/dL (8.5-10.1); CREATININE 0.7 mg/dL (0.6-1.3); POTASSIUM 3.5 mmol/L (3.5-5.1)
[2025-02-06 09:53] LABS: EOSINOPHILS % (MANUAL) 3 % (0-4); LYMPHOCYTES % (MANUAL) 11 % (16-48); MONOCYTES % (MANUAL) 8 % (0-11.0); NEUTROPHILS % (MANUAL) 78 (42-76); PLATELET ESTIMATE ADEQUATE
[2025-02-06] MEDS: CALCIUM CARBONATE 500 MG TAB.CHEW PO PRN (10:52)
[2025-02-06] MEDS: VANCOMYCIN 1 GM in IV D5W 250 ML IV SCH (12:12)
[2025-02-07] VITALS (9 sets, daily range): BP systolic 144–159; BP diastolic 67–80; TEMP 97.3–99.1; O2SAT 95–99
[2025-02-08 02:00] VITALS: O2SAT 97
[2025-02-08 07:23] VITALS: O2SAT 96
[2025-02-08 07:38] VITALS: O2SAT 99
[2025-02-08 08:00] VITALS: BP 138/79; TEMP 98.1; O2SAT 96
[2025-02-08 12:36] LABS: CREATININE 0.6 mg/dL (0.6-1.3); POTASSIUM 3.7 mmol/L (3.5-5.1)
[2025-02-08 13:12] VITALS: O2SAT 98
== END 2025-02-08 14:36 | DRG 872 ==
LOC: ER 07:54 → MED 10:08
PROVIDERS: ADMIT Nurse Practitioner Acute Care; ATTEND Nurse Practitioner Acute Care
PROC: 05HF33Z Insertion of Infusion Device into Left Cephalic Vein, Percutaneous Approach (ICD-10-PCS; principal; 2025-02-03)
PROC: B54NZZA Ultrasonography of Left Upper Extremity Veins, Guidance (ICD-10-PCS; 2025-02-03)
DX: A41.9 Sepsis, unspecified organism (principal); L03.116 Cellulitis of left lower limb; L03.115 Cellulitis of right lower limb; Z68.44 Body mass index [BMI] 60.0-69.9, adult; E44.0 Moderate protein-calorie malnutrition; E03.9 Hypothyroidism, unspecified; G62.9 Polyneuropathy, unspecified; G47.33 Obstructive sleep apnea (adult) (pediatric); M19.90 Unspecified osteoarthritis, unspecified site; E66.01 Morbid (severe) obesity due to excess calories; G89.29 Other chronic pain; I89.0 Lymphedema, not elsewhere classified; Z88.2 Allergy status to sulfonamides; Z87.440 Personal history of urinary (tract) infections; Z20.822 Contact with and (suspected) exposure to COVID-19; R53.1 Weakness; E66.9 Obesity, unspecified; Z71.3 Dietary counseling and surveillance; R65.20 Severe sepsis without septic shock; I10 Essential (primary) hypertension; L27.0 Generalized skin eruption due to drugs and medicaments taken internally; T37.0X5A Adverse effect of sulfonamides, initial encounter; Y92.009 Unspecified place in unspecified non-institutional (private) residence as the place of occurrence of the external cause
CPT/HCPCS: 36410; 36415; 71045-TC; 80048-TC; 80076-TC; 80202-TC; 83605-TC; 83735-TC; 84100-TC; 85025-TC; 85730-TC; 87040-TC; 87081-TC; 87086-TC; 93307-TC; 93970-TC; 94660; 94760-TC; 94799-TC; 97110-TC; 97112-TC; 97530-TC; 97535-TC; A4223; A6253; A6403; G0378; J0692; J1650; J3370; J7030; J7040; J7050; J7060